=== PATIENT | female | born 1975 | race Caucasian/White ===

== ENCOUNTER → 2021-09-07 01:25 | Outpatient (CLI) | payer OTHER, SELFPAY ==
[2021-09-07] MEDS: Gadoterate meglumine 20 ML VIAL 10 ML IVP (10:43)
[2021-09-07] MEDS: Normal Saline Flush 10 ML SYR IVP (10:46)
--- NOTE | 2021-09-07 10:58 | DI.MRI_ITS ---
Exam(s) MR BRAIN WO/W EXAM: MR BRAIN WO/W CLINICAL HISTORY: MASS LESION OF BRAIN R22.0, LESION SEEN OF CT 08/29/21 ADJACENT TO MIDBRAIN. TECHNIQUE: Multiplanar multisequence MRI of the brain was performed. CONTRAST MATERIAL: IV Contrast: ML of Dotarem contrast administered. COMPARISON: CT CT FACIAL BONES WO CONTRAST from 08/29/[address] FACIAL BONES WO CONTRAST from 08/29/2021 FINDINGS: VENTRICLES AND EXTRA AXIAL SPACES: Ventricles normal in size and morphology for the patient's age. H omogeneous fatty signal lesion posterior to the left mid brain measuring roughly 1.7 x 0.8 by 1.1 cm. No associated diffusion restriction. No calcification or fluid component. No additional masses or abnormal areas of enhancement. HEMORRHAGE: None. CEREBRAL PARENCHYMA: No focus of restricted diffusion to suggest acute infarct. MIDLINE SHIFT: None. BRAINSTEM/CEREBELLUM: Mild mass effect and posterior left midbrain secondary to the fatty signal lesi on. CALVARIUM: Normal. ENHANCEMENT: No suspicious enhancement identified. VISUALIZED PARANASAL SINUSES/MASTOIDS: Clear. 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 No lang picious features. DATA REPOSITORY:
== END ==
PROVIDERS: PCP Nurse Practitioner Family; Visit Provider Internal Medicine
DX: R22.0 Localized swelling, mass and lump, head (principal); D17.79 Benign lipomatous neoplasm of other sites
CPT/HCPCS: 70553

== ENCOUNTER 2022-02-19 03:57 | Outpatient (CLI) | payer BC, SELFPAY ==
--- NOTE | 2022-02-19 08:30 | DI.NM_ITS ---
Exam(s) NM HEPATOBILIARY CCK GRP EXAM: NM HEPATOBILIARY CCK GRP CLINICAL HISTORY: RUQ PAIN, R10.11. TECHNIQUE: Injected dose: 5 mCi Tc-99 mebrofenin Initial dynamic images: According to protocol. Post-Gallbladder fillin.4 mcg CCK administered according to protocol. Addition images: According to protocol. COMPARISON: No exams were available for comparison FINDINGS: Normal hepatic transit time. Prompt excretion into the small bowel. Prompt excretion into the gallbladder. The gallbladder ejection fraction is 86 percent which is with in normal limits. IMPRESSION: 1. Normal examination. SN guidelines: Gallbladder visualization should be present by 3 hours. Delayed [id number]-hp-[id number] gabriel sit beyond 60 min raises the suspicion for partial common bile duct (CBD) obstruction. Gallbladder ejection fraction <35% has a good correlation with acalculous disease (i.e., chronic acal culous cholecystitis, cystic duct syndrome, sphincter of Oddi disease).
[2022-02-19] MEDS: Sincalide 5 MCG VIAL 1.4 MCG IJ (12:53)
== END 2022-02-19 04:17 ==
LOC: DI 03:58
PROVIDERS: PCP Nurse Practitioner Family; Visit Provider Internal Medicine
DX: R10.11 Right upper quadrant pain (principal)
CPT/HCPCS: 78227